=== PATIENT | male | born 1955 | race Caucasian/White ===

== ENCOUNTER 2022-07-11 15:26 | Emergency (ER) | payer MEDICARE, SELFPAY ==
[2022-07-11] VITALS (15 sets, daily range): BP systolic 108–135; BP diastolic 70–81; PULSE 78–99; RESP 16–30; TEMP 36.8; O2SAT 97–99
--- NOTE | ~2022-07-11 | XR_ITS ---
EXAMINATION: XR chest 2V Exam Date/Time: 07/11/2022 16:10 [employer] HISTORY: weakness COUGH LOW BLOOD SUGAR RECENT Comparison: 09/04/2017. RESULT: Lines, tubes, and devices: None. Lungs and pleura: Minimal streaky perihilar and reticular opacities with cuffing. Minimal linear bib asilar atelectasis/scar Cardiomediastinal silhouette: Stable. Other: No acute osseous or upper abdominal finding. IMPRESSION: Pulmonary opacities may represent mild interstitial edema in the appropriate clinical context. Reviewed, dictated and finalized at location [facility]. [facility] [employer] IMPRESSION: Pulmonary opacities may represent mild interstitial edema in the appropriate cl inical context.
[2022-07-11 15:34] LABS: Glucose Point of Care 74 mg/dl (65-105)
--- NOTE | 2022-07-11 15:43 | ECG_ITS ---
Measurements Intervals [place] Rate: 81 P: 14 IN: 180 QRS: 44 QRSD: 94 T: 24 QT: 331 QTc: 384 Interpretive Statements SINUS RHYTHM BASELINE ARTIFACT NONSPECIFIC ST & T-WAVE ABNORMALITY BORDERLINE ECG NO PREVIOUS ECG AVAILABLE FOR COMPARISON Electronically Signed On 07-12-2022 16:41:56 [employer] TECHNICIAN by Jarret Hogan M.D.
[2022-07-11 16:01] LABS: Basophils Absolute Auto 0.1 K/mm3 (0.0-0.1); Basophils Percent Auto 1.4 % (0.2-1.2); Eosinophils Absolute Auto 0.1 K/mm3 (0-0.3); Eosinophils Percent Auto 1.6 % (0-4.4); Hematocrit 43.1 % (42.0-52.0); Hemoglobin 14.7 g/dL (14.0-18.0); Immature Granulocyte Absolute 0.03 K/mm3 (0.00-0.031); Immature Granulocyte Percent A 0.7 % (0-0.5); Lymphocytes Absolute Auto 0.83 K/mm3 (0.9-3.2); Lymphocytes Percent Auto 19.2 % (18.3-44.2); Mean Corpuscular HGB Conc 34.1 g/dl (32-36); Mean Corpuscular Hemoglobin 28.9 pg (26-34); Mean Corpuscular Volume 84.7 fl (80-100); Mean Platelet Volume 9.9 fl (7.4-10.4); Monocytes Absolute Auto 1.1 K/mm3 (0.1-0.6); Monocytes Percent Auto 24.9 % (2.6-8.5); Neutrophils Absolute Auto 2.3 K/mm3 (1.3-6.7); Neutrophils Percent Auto 52.2 % (45.5-73.1); Platelet Count Result 259 k/mm3 (150-375); Red Blood Count 5.09 M/mm3 (4.6-6.20); Red Cell Distribution Width 12.8 % (11.5-14.5); White Blood Count 4.3 K/mm3 (4.5-10.0)
[2022-07-11 16:11] LABS: Alanine Aminotransferase 25 U/L (6-50); Albumin Level 4.5 g/dL (3.5-5.1); Alkaline Phosphatase 71 U/L (38-126); Anion Gap 6 mmol/L (8-16); Aspartate Amino Transferase 30 U/L (17-59); Bilirubin,Total 0.5 mg/dL (0.2-1.3); Blood Urea Nitrogen 14 mg/dL (9-20); Calcium 8.9 mg/dL (8.4-10.2); Carbon Dioxide 28 mmol/L (22-30); Chloride 96 mmol/L (98-107); Estimated Glomerular Filt Rate > 60; Glucose 75 mg/dL (65-110); Potassium 3.8 mmol/L (3.4-5.0); Sodium 130 mmol/L (137-145)
--- NOTE | 2022-07-11 16:12 | PC.NURSE ---
Pt ate sandwich, chips, 2 OJs and a cookie. Pt reports he feels better
[2022-07-11 16:16] LABS: Add Urine Microscopic? YES; Appearance Urine Clear (Clear); Bilirubin Urine Negative (Negative); Blood Urine 1+ (Negative); Glucose Urine UA 1+ mg/dL (Negative); Ketones Urine Trace mg/dL (Negative); Leukocyte Esterase Ur Negative LEU/UL (Negative); Nitrate Urine Negative (Negative); Protein Urine Negative (Negative); Specific Grav Ur 1.025 (1.001-1.035); Urobilinogen Urine 0.2 mg/dL (<2.0)
[2022-07-11 16:17] LABS: Color Urine Yellow (Yellow)
[2022-07-11 16:20] LABS: Glucose Point of Care 146 mg/dl (65-105)
[2022-07-11 16:21] LABS: Mucus Urine Few /lpf; Squamous Epithelial Cell Urine Rare /hpf (Few); WBC Urine 0-3 /hpf
--- NOTE | 2022-07-11 17:27 | ED.GENADULT ---
HPI - General Adult General Chief complaint: Weakness Stated complaint: gen weakness Time Seen by Provider: 07/11/22 17:11 History of Present Illness HPI narrative: Patient is a 67-year-old male presenting with an episode of hypoglycemia. Patient states that he has an insulin pump and he refilled his insulin reservoir today. States that when he does this he has been experiencing episodes of hypoglycemia recently. States that this afternoon he felt shaky and irritable which led him to believe he was hypoglycemic. He checked his sugars were in the 70s. EMS arrived and gave him some glucose with subsequent glucose in the 200s. Currently, the patient states that he feels significantly improved. States that he feels well and would like to drink some soda. States he has been tolerating p.o. intake for the last several hours. Denies any complaints at this time. Related Data Allergies Allergy/AdvReac Type Severity Reaction Status Date / Time vancomycin Allergy Diarrhea Verified 07/11/22 15:33 Review of Systems Review of Systems: All systems reviewed & are unremarkable except as noted in HPI and below Exam Narrative: GENERAL: Well-appearing, well-nourished, and in no acute distress. HEAD: Normocephalic, atraumatic. EYES: PERRLA and EOMI. ENT: Nares clear, no rhinorrhea or epistaxis. Mucous membranes moist. NECK: Supple. CHEST: Clear to auscultation. No respiratory distress. HEART: Regular rate and rhythm. No murmur heard. Normal peripheral pulses. ABDOMEN: Soft, nontender, nondistended, normal active bowel sounds. EXTREMITIES: Normal range of motion. No edema. SKIN: Warm, dry, no rash. NEURO: No focal deficits. Alert and oriented x3. PSYCH: Normal mood and affect. Course Vital Signs Vital signs: Vital Signs Temperature 98.2 F 07/11/22 15:23 Pulse Rate 85 07/11/22 15:23 Respiratory Rate 18 07/11/22 15:23 Blood Pressure 108/79 07/11/22 15:23 Pulse Oximetry 97 07/11/22 15:23 Oxygen Delivery Room Air 07/11/22 15:23 Temperature 98.2 F 07/11/22 18:30 Pulse Rate 90 07/11/22 18:30 Respiratory Rate 16 07/11/22 18:30 Blood Pressure 120/74 07/11/22 18:30 Pulse Oximetry 99 07/11/22 18:30 Oxygen Delivery Room Air 07/11/22 15:23 Medical Decision Making MDM Narrative Medical decision making narrative: Patient is a 67-year-old male presenting with an episode of hypoglycemia. Vitals are within normal limits. On my evaluation, the patient denies complaints. States that he feels much improved. States that he has been able to eat. Initial glucose was in the 70s but subsequent glucoses have been 200s to 300s. Blood work is otherwise with mild hyponatremia. Patient has been observed for several hours now and continues to feel well. Advised that he follow-up closely with his PCP regarding his insulin pump especially if he has now had multiple episodes of hypoglycemia whenever he refills his insulin reservoir. Appropriate return precautions were given. Patient voiced understanding and is agreeable with plan. Discharged in stable condition. Vital Signs Vital Signs: Vital Signs Temperature 98.2 F 07/11/22 15:23 Pulse Rate 85 07/11/22 15:23 Respiratory Rate 18 07/11/22 15:23 Blood Pressure 108/79 07/11/22 15:23 Pulse Oximetry 97 07/11/22 15:23 Oxygen Delivery Room Air 07/11/22 15:23 Temperature 98.2 F 07/11/22 18:30 Pulse Rate 90 07/11/22 18:30 Respiratory Rate 16 07/11/22 18:30 Blood Pressure 120/74 07/11/22 18:30 Pulse Oximetry 99 07/11/22 18:30 Oxygen Delivery Room Air 07/11/22 15:23 Lab Data 07/11/22 15:51 07/11/22 15:51 Labs: Lab Results 07/11/22 07/11/22 07/11/22 Range/Units 15:31 15:51 15:51 WBC 4.3 L (4.5-10.0) K/mm3 RBC 5.09 (4.6-6.20) M/mm3 Hgb 14.7 (14.0-18.0) g/dL Hct 43.1 (42.0-52.0) % MCV 84.7 (80-100) fl MCH 28.9 (26-34) pg MCHC 34.1 (32-36) g/dl R
[2022-07-11] MEDS: SODIUM CHLORIDE 0.9% IV 1,000 ML 999 ML IV CONT (18:12)
[2022-07-11 18:32] LABS: Glucose Point of Care 302 mg/dl (65-105)
== END 2022-07-11 19:07 | disposition home or self-care (01) ==
PROVIDERS: Emergency Provider Emergency Medicine; PCP Internal Medicine
DX: E11.649 Type 2 diabetes mellitus with hypoglycemia without coma (principal); Z96.41 Presence of insulin pump (external) (internal)
CPT/HCPCS: 36415; 71046; 80053; 81001; 82948; 85025; 93005; 96360; 99283; J7030